=== PATIENT | male | born 1950 | race Caucasian/White ===

== ENCOUNTER 2016-06-30 10:26 | Emergency (ER) | payer OTHER ==
[2016-06-30 10:30] VITALS: BP 117/101; TEMP 98.2; BMI 32.5
[2016-06-30] MEDS ORDERED: TORADOL IVP STA (10:35)
[2016-06-30] MEDS ORDERED: TORADOL ONE (10:39)
[2016-06-30 11:02] LABS: BASOPHILS # (AUTO) 0.1 K/uL (0-0.2); BASOPHILS % (AUTO) 0.7 % (0.0-3.0); EOSINOPHILS # (AUTO) 0.1 K/ul (0.0-0.7); HEMATOCRIT 44.4 % (42.0-52.0); HEMOGLOBIN 15.2 g/dl (14.0-18.0); IMMATURE GRANULOCYTE % (AUTO) 0.8 % (0.0-5.0); LYMPHOCYTES # (AUTO) 1.9 K/uL (0.60-3.4); LYMPHOCYTES % (AUTO) 18.8 (10.0-50.0); MEAN CORPUSCULAR HEMOGLOBIN 31.7 pg (27.0-31.0); MEAN CORPUSCULAR HGB CONC 34.2 (31.8-35.4); MEAN CORPUSCULAR VOLUME 92.7 fl (80.0-94.0); MONOCYTES # (AUTO) 0.7 K/uL (0.4-2.0); NEUTROPHILS # (AUTO) 7.2 K/ul (2.0-6.9); NEUTROPHILS % (AUTO) 71.7; PLATELET COUNT 350 10^3/uL (140-440); RED BLOOD COUNT 4.79 10^6/ul (4.70-6.10); WHITE BLOOD COUNT 10.04 K/ul (4.2-10.2)
--- NOTE | 2016-06-30 11:09 | DI ---
EXAM: Two views of the chest. History: Shoulder pain. Comparison: Chest radiograph 04/28/2016 Findings: Upper limits of normal heart size. No focal consolidation. No appreciable pleural fluid and no pneumothorax. Atherosclerotic vascular calcifications. No acute osseous abnormalities. Impression: Upper limits of normal heart size with no acute infiltrates.
--- NOTE | 2016-06-30 11:21 | DI ---
EXAM: Three views of the left shoulder. History: Left shoulder pain. Findings: No acute fracture or dislocation. Mild to moderate narrowing of the left AC joint. Kyler ohumeral joint is intact. Impression: No acute osseous abnormality. 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
[2016-06-30 11:38] LABS: ALBUMIN 3.6 g/dL (3.4-5.0); ANION GAP 15.9; BILIRUBIN,TOTAL 0.92 mg/dL (0.00-1.20); BUN/CREATININE RATIO 16.8; CALCIUM 9.3 mg/dL (8.2-10.2); CREATININE 1.25 mg/dL (0.60-1.10); POTASSIUM 3.9 mmol/L (3.5-5.1); TOTAL PROTEIN 7.2 g/dL (5.8-8.1)
[2016-06-30 11:39] LABS: CREATINE KINASE MB 1.9 ng/ml (0.0-3.6)
--- NOTE | 2016-06-30 12:32 | ED.PDOC ---
General ED Provider: Dr. JOSE M MYLES Chief Complaint: Shoulder Pain/Injury Stated Complaint: patient is a 66 year old male who complains of left shoulder pain that started last night. He denies any injury or fall. Has not Taken anything for it. walked severeal blocks to get to the ER. Time Seen by Physician: 12:29 Mode of Arrival: Walk-In Information Source: Patient Exam Limitations: No limitations Primary [facility] and Triage Documentation Reviewed and Agree: Yes Musculoskeletal Complaint Exam - Shoulder Pain Complaint/Exam Mechanism of Injury: Reports: No known trauma Onset/Duration: 1 day Symptoms Are: Still present Timing: Constant Initial Severity: Moderate Current Severity: Severe Location: Reports: Discrete (Left shoulder and neck pain) Character: Reports: Aching, Throbbing Alleviating: Reports: None Aggravating: Reports: Movement, Lifting Associated Signs and Symptoms: Denies: Swelling, Redness, Bruising, Fever, Weakness, Numbness, Tingling Related History: Reports: Similar episode Non-Orthopedic Risk Factors: Reports: None DVT Risk Factors: Reports: None Septic Arthritis Risk Factors: Reports: None Related Surgical History: Reports: None Tenderness: Present: Clavicle Limited Range of Motion: Present: Abduction, Extension, Internal rotation, Rotator cuff muscles Shoulder Picture: 1 - tenderness and pain 2 - tenderness and pain Differential Diagnoses: Arthritis, Sprain, Strain, Tendonitis Quality Indicator For Non-Traumatic Chest Pain/Syncope: EKG Performed Review of Systems - Review Of Systems Constitutional: Reports: No symptoms Eyes: Reports: No symptoms Ears, Nose, Mouth, Throat: Reports: No symptoms Respiratory: Reports: No symptoms Cardiac: Reports: No symptoms GI: Reports: No symptoms : Reports: No symptoms Musculoskeletal: Reports: Joint pain, Joint swelling Skin: Reports: No symptoms Neurological: Reports: No symptoms, Anxiety Endocrine: Reports: No symptoms Hematologic/Lymphatic: Reports: No symptoms All Other Systems: Reviewed and Negative Past Medical History - Past Medical History Endocrine: Reports: None Cardiovascular: Reports: Hypertension Respiratory: Reports: None Hematological: Reports: None Gastrointestinal: Reports: None Genitourinary: Reports: None Neuro/Psych: Reports: None Musculoskeletal: Reports: None Cancer: Reports: None - Surgical History General Surgical History: Reports: None - Family History Family History: Reports: Hypertension - Social History Smoking Status: Former smoker Hx Substance Use: No Alcohol Screening: Occasionally Physical Exam - Physical Exam Appearance: Ill-appearing, Obese Pain Distress: Severe ENT: Ears normal Neck: Supple Respiratory: Airway patent, Breath sounds clear, Breath sounds equal, Respirations nonlabored Cardiovascular: RRR, Pulses normal, No rub, No murmur GI/: Soft, Nontender Musculoskeletal: Limited ROM (Left shouler ) Neurological: Alert Psychiatric: Anxious Interpretation - Radiology Interpretation Radiology Interpretation By: Radiologist Radiology Results: Negative Exam Interpreted: CXR Radiology Interpretation By: Radiologist Radiology Results: Negative (only arthritis.) Exam Interpreted: Other (shoulder x ray ) - EKG Interpretation Time of EKG #1: 11:50 Rate: Normal Rhythm: Sinus Ectopy: None [place]: Left ST Segment: Normal 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 Appearance: NAD Lungs: Clear Skin: Warm and Dry Neuro: Alert and Oriented X3 CV: RRR Critical Care Note - Critical Care Note Total Time (mins): 0 Course - Course Hematology/Chemistry: 06/30/16 10:55 06/30/16 10:55 Orders, Labs, Meds: Lab Review 06/30/16 10:55 WBC 10.04 RBC 4.79 Hgb 15.2 Hct 44.4 MCV 92.7 MCH 31.7 H MCHC 34.2 RDW Coeff of Joseph 12.4 Plt Count 350 Immature Gran % (Auto) 0.8 Neut % (Auto) 71.7 Lymph % (Auto) 18.8 [place] % (Auto) 7.0 Eos % (Auto) 1.0 Baso % (Auto) 0.7 Immature Gran # (Auto) 0.1 Neut # 7.2 H Lymph # 1.9 [place] # 0.7 Eos # 0.1 Baso # 0.1 Sodium 141 Potassium 3.9 Chloride 108 H Carbon Dioxide 21 L Anion Gap 15.9 BUN 21 H Creatinine 1.25 H Estimated GFR (MDRD) 57.00 BUN/Creatinine Ratio 16.80 Glucose 134 H Calcium 9.3 Total Bilirubin 0.92 AST 19 ALT 18 Alkaline Phosphatase 56 Total Creatine Kinase 193 CK-MB (CK-2) 1.9 CK-MB (CK-2) % 0.62198 Total Protein 7.2 Albumin 3.6 Globulin 3.6 Albumin/Globulin Ratio 1.00 Orders Category Date Time Status EKG-(ED ONLY) Stat CARDIO 06/30/16 10:37 Completed ED IV/MEDIPORT/POWERPORT .ONCE EMERGENCY 06/30/16 10:35 Active CBC W/ AUTO DIFF Stat LAB 06/30/16 10:55 Completed COMPREHENSIVE METABOLIC PANEL Stat LAB 06/30/16 10:55 Completed CREATINE KINASE Stat LAB 06/30/16 10:55 Completed 0.9 % Sodium Chloride [Saline Flush] MEDS 06/30/16 10:37 Discontinued 1 syr IVF PRN PRN Ketorolac Tromethamine [Toradol] MEDS 06/30/16 10:39 Discontinued 30 mg .ROUTE .STK-MED ONE Ketorolac Tromethamine [Toradol] MEDS 06/30/16 10:35 Discontinued 30 mg IVP ONCE STA CHEST, 2 VIEWS PA & LAT Stat RADS 06/30/16 10:37 Completed SHOULDER, LEFT MIN 2V Stat RADS 06/30/16 10:37 Completed Medications Discontinued Medications Generic Name Dose Route Start Last Admin Trade Name Freq PRN Reason Stop Dose Admin Ketorolac Tromethamine 30 mg 06/30/16 10:35 06/30/16 10:44 Toradol IVP 06/30/16 10:36 30 mg ONCE STA Administration Sodium Chloride 1 syr 06/30/16 10:37 06/30/16 10:44 Saline Flush IVF 1 syr PRN PRN Administration To flush IV Vital Signs: Temp Pulse Resp BP Pulse Ox 06/30/16 10:26 98.2 F 88 22 117/101 H 97 Departure - Departure Time of Disposition: 12:33 Disposition: HOME SELF-CARE Discharge Problem: Shoulder pain Instructions: Arthritis (ED) Condition: Good Pt referred to PMD for follow-up: Yes Additional Instructions: Push fluids Take pain medications as needed Rest Follow up with your PCP in 3 days Prescriptions: Acetaminophen with Codeine [Tylenol #3 Tab] 1 tab PO Q6H PRN #15 tablet PRN Reason: Severe Pain Allergies/Adverse Reactions: Allergies No Known Allergies Allergy (Verified 06/30/16 10:32) Home Medications: Ambulatory Orders Acetaminophen with Codeine [Tylenol #3 Tab] 1 tab PO Q6H PRN #15 tablet Disposition Discussed With: Patient
== END 2016-06-30 13:31 | disposition home or self-care (01) ==
LOC: ED 10:26
DX: M25.512 Pain in left shoulder (principal); M54.2 Cervicalgia; M19.012 Primary osteoarthritis, left shoulder; I10 Essential (primary) hypertension
CPT/HCPCS: 36415; 80053; 82550; 82553; 85025; 93005; 93010; 96374; 99283

== ENCOUNTER 2016-06-30 20:06 | Outpatient (CLI) | payer OTHER ==
[2016-06-30 10:30] VITALS: BMI 32.5
== END 2016-06-30 20:07 | disposition home or self-care (01) ==
LOC: AMBL 20:06
PROVIDERS: ATTEND Family Medicine
DX: R39.198 Other difficulties with micturition (principal); R10.31 Right lower quadrant pain; M54.9 Dorsalgia, unspecified

== ENCOUNTER 2016-07-13 10:50 | Outpatient (CLI) ==
[2016-07-13 15:15] LABS: CHOL/HDL RATIO 5.7 (4.5-6.4)
== END 2016-07-13 10:51 | disposition home or self-care (01) ==
LOC: LAB 10:50
PROVIDERS: ATTEND Nurse Practitioner Family
DX: E78.5 Hyperlipidemia, unspecified (principal); I10 Essential (primary) hypertension; Z12.5 Encounter for screening for malignant neoplasm of prostate
CPT/HCPCS: 36415; 80061; 84443

== ENCOUNTER 2016-07-19 16:43 | Outpatient (CLI) ==
[2016-07-19 17:12] LABS: FLU INTERNAL QC INTERNAL QC VALID; RAPID FLU A NEGATIVE (NEGATIVE); RAPID FLU B NEGATIVE (NEGATIVE)
== END 2016-07-19 16:44 | disposition home or self-care (01) ==
LOC: LAB 16:43
PROVIDERS: ATTEND Nurse Practitioner Family
DX: R05 Cough (principal); J02.9 Acute pharyngitis, unspecified; R50.9 Fever, unspecified
CPT/HCPCS: 87651; 87804; 87880

== ENCOUNTER 2017-10-02 13:09 | Emergency (ER) | payer OTHER ==
[2017-10-02 13:24] VITALS: BP 173/93; TEMP 98.5; BMI 37.5
[2017-10-02] MEDS ORDERED: NORCO 10-325 PO STA (13:42)
[2017-10-02] MEDS ORDERED: ZESTRIL PO STA (13:42)
--- NOTE | 2017-10-02 14:54 | DI ---
EXAM: Single view of the pelvis. History: Pelvic pain. Findings: No acute fracture or dislocation. Bilateral hip joint spaces are relatively preserved. D egenerative disc disease within the lower lumbar spine. Impression: No acute osseous abnormality.
--- NOTE | 2017-10-02 14:54 | DI ---
Exam: Right hip two-view. HISTORY: Pain. Findings: Two views of the right hip are submitted. These demonstrate no acute fracture or dislocat ion. There is no osseous erosion. There is no subchondral lucency or collapse. The right myron pelvi s appears intact. Surgical clips project over the right pelvis. No focal soft tissue swelling is se en. Impressions: Mild degenerative findings of the right hip with no acute fracture or dislocation.
--- NOTE | 2017-10-02 15:07 | CT ---
Exam: CT lumbar spine HISTORY: Pain. Low back pain going into the hips. Procedures: 3 mm contiguous axial images were obtained through the lumbar spine without the use of c ontrast. Sagittal and coronal reformatted images were also created and reviewed. Findings: There are five [id number], lumbarized vertebrae in approximate anatomic alignment. Th ere is multilevel mild degenerative disc and facet arthropathy with no acute fracture or listhesis. Mild degenerative findings are noted in the spine. Limited visualization of the adjacent soft tissue s demonstrates a 5 mm calcification in the right kidney, without hydronephrosis. At the upper pole o f the right kidney there is a fluid density probable cyst measuring at least 4 cm in diameter. This measured 3.2 cm in diameter on the 01/08/2013 CT of the abdomen. A 7 mm x 7 mm x 5 mm calcification i s noted in the distal ureter just proximal to the right ureterovesicular junction. Atherosclerotic ca lcifications are noted, without aortic aneurysm. There is no paraspinal fluid collection. Individua l disc levels are evaluated as follows At T12-L1 there is no significant disc bulge, central spinal canal or neural foraminal stenosis. At L1-2 there is a minimal sequential disc bulge without central canal stenosis. Mild neural foramin al stenosis is noted bilaterally. At L2-3 there is a mild sequential disc bulge without central spinal canal stenosis. Mild bilateral neural foraminal stenosis is noted. At L3-4 there is a mild circumferential disc bulge without midline central spinal canal stenosis. Mo derate neural foraminal stenosis is noted bilaterally. At L4-5 there is a mild circumferential disc bulge which combines with facet and ligamentous hypertro phy and reduces the AP diameter of the spinal canal to 8 mm. Moderate neural foraminal stenosis is n oted bilaterally. At L5-S1 there is a minimal disc bulge without central canal stenosis. Mild neural foraminal stenosi s is noted bilaterally. Impressions: No acute fracture or listhesis in the lumbar spine. Multilevel degenerative disease as described. Central spinal canal stenosis to 8 mm L4-5. Moderate neural foraminal stenosis bilaterally at L3-4 and L4-5. Mild neural foraminal stenosis at L 1-2, L2-3 and L5-S1. 7 mm x 7 mm x 5 mm calcification in the distal right ureter, just proximal to the ureterovesicular ju nction. No hydronephrosis or hydroureter. 5 mm nonobstructing calcification in the right kidney. Findings were faxed to the emergency department at 2:55 p.m.
[2017-10-02] MEDS ORDERED: MORPHINE 2 MG/ML SYRINGE IM STA (15:45)
[2017-10-02] MEDS ORDERED: ZOFRAN 4 MG/2 ML IM STA (15:45)
--- NOTE | 2017-10-02 15:47 | ED.PDOC ---
General ED Provider: Dr. DRU WILSON Chief Complaint: Hip Pain/Injury Stated Complaint: hip pain back pain Time Seen by Physician: 13:11 Mode of Arrival: Ambulance Information Source: Patient Exam Limitations: No limitations Primary Care Provider: LISSETT RAMIREZHillary Nursing and Triage Documentation Reviewed and Agree: Yes Reviewed sepsis parameters & appropriate labs ordered?: Yes System Inflammatory Response Syndrome: Not Applicable Sepsis Protocol: For patient's 13 years and over: Temp is 96.8 and below OR 101 and greater Pulse >90 BPM Resp >20/minute Acutely Altered Mental Status Are patient's symptoms suggestive of a new infection, such as: -Pneumonia -Skin, Soft Tissue -Endocarditis -UTI -Bone, Joint Infection -Implantable Device -Acute Abdominal Infection -Wound Infection -Meningitis -Blood Stream Catheter Infection -Unknown System Inflammatory Response Syndrome: Not Applicable Musculoskeletal Complaint Exam - Back Pain Complaint/Exam Mechanism of Injury: Reports: No known trauma Onset/Duration: 13:11 Symptoms Are: Still present Timing: Intermittent Initial Severity: Moderate Current Severity: Moderate Location: Reports: Discrete Character: Reports: Dull, Aching Alleviating: Reports: Rest Associated Signs and Symptoms: Denies: Swelling, Redness, Bruising, Fever, Weakness, Numbness, Tingling, Abdominal pain, Flank pain, Bladder incontinence, Bowel incontinence, Weight loss, Pain with weight bearing Related History: Reports: Similar episode TAD Risk Factors: Reports: None AAA Risk Factors: Reports: None Cauda Equina Risk Factors: Reports: None Epidural Abcess Risk Factors: Reports: None Focal Tenderness: No Paraspinal Muscle Tenderness: No Paraspinal Muscle Spasm: No Scoliosis: No Lordosis: No Kyphosis: No SLR Test: Right Negative, Left Negative Hip Motion Testing Pain: Right Negative, Left Negative Focal Weakness: Present: None Focal Sensory Loss: Present: None Gait: Present: Normal Differential Diagnoses: Strain, Sprain Review of Systems - Review Of Systems Constitutional: Reports: No symptoms Eyes: Reports: No symptoms Ears, Nose, Mouth, Throat: Reports: No symptoms Respiratory: Reports: No symptoms Cardiac: Reports: No symptoms GI: Reports: No symptoms : Reports: No symptoms Musculoskeletal: Reports: Back pain Skin: Reports: No symptoms Neurological: Reports: No symptoms Endocrine: Reports: No symptoms Hematologic/Lymphatic: Reports: No symptoms All Other Systems: Reviewed and Negative Past Medical History - Past Medical History Previously Healthy: Yes Endocrine: Reports: None Cardiovascular: Reports: Hypertension Respiratory: Reports: None Hematological: Reports: None Gastrointestinal: Reports: None Genitourinary: Reports: None Neuro/Psych: Reports: None Musculoskeletal: Reports: None Cancer: Reports: None - Surgical History General Surgical History: Reports: None - Family History Family History: Reports: Hypertension - Social History Smoking Status: Former smoker Hx Substance Use: No Alcohol Screening: Occasionally Physical Exam - Physical Exam Appearance: Well-appearing, No pain distress, Well-nourished Eyes: CAIO, EOMI, Conjunctiva clear ENT: Ears normal, Nose normal, Oropharynx normal Respiratory: Airway patent, Breath sounds clear, Breath sounds equal, Respirations nonlabored Cardiovascular: RRR, Pulses normal, No rub, No murmur GI/: Soft, Nontender, No masses, Bowel sounds normal, No Organomegaly Musculoskeletal: Normal strength, ROM intact, No edema, No calf tenderness Skin: Warm, Dry, Normal color Neurological: Sensation intact, Motor intact, Reflexes intact, Cranial nerves intact, Alert, Oriented Psychiatric: Affect appropriate, Mood appropriate Interpretation - Radiology Interpretation Radiology Interpretation By: Radiologist (spinal canal stenosis) Critical Care Note - Critical Care Note Total Time (mins): 0 Course - Course Orders, Labs, Meds: Orders Category Date Time Status Hydrocodone Bit/Acetaminophen [[place] 10-325] MEDS 10/02/17 13:42 Discontinued 1 tab PO ONCE STA Lisinopril [Zestril] MEDS 10/02/17 13:42 Discontinued 20 mg PO ONCE STA CT LUMBAR SPINE W/O CONTRAST Stat RADS 10/02/17 13:42 Completed HIP, RIGHT 2 VIEWS Stat RADS 10/02/17 13:41 Completed PELVIS 1 OR 2 VIEWS Stat RADS 10/02/17 13:41 Completed Medications Discontinued Medications Generic Name Dose Route Start Last Admin Trade Name Freq PRN Reason Stop Dose Admin Hydrocodone Bitart/Acetaminophen 1 tab 10/02/17 13:42 10/02/17 13:48 [place] 10-325 PO 10/02/17 13:43 1 tab ONCE STA Administration Lisinopril 20 mg 10/02/17 13:42 10/02/17 13:46 Zestril PO 10/02/17 13:43 20 mg ONCE STA Administration Vital Signs: Temp Pulse Resp BP Pulse Ox 10/02/17 13:11 98.5 F 83 20 173/93 H 98 Departure - Departure Time of Disposition: 15:49 Disposition: HOME SELF-CARE Discharge Problem: Hip pain Lumbar stenosis Qualifiers: Neurogenic claudication status: unspecified Qualified Code(s): M48.061 - Spinal stenosis, lumbar region without neurogenic claudication Instructions: Lumbar Spinal Stenosis (ED) Condition: Good Pt referred to PMD for follow-up: Yes IPMP verified?: No Additional Instructions: Please call your Family Physician as soon as possible to schedule a follow-up appointment. Allergies/Adverse Reactions: Allergies No Known Allergies Allergy (Verified 10/02/17 13:14) Home Medications: Ambulatory Orders 1 [No Reported Medications] 10/02/17 Disposition Discussed With: Patient
[2017-10-02] MEDS ORDERED: MORPHINE 4 MG/ML SYRINGE ONE (15:49)
== END 2017-10-02 16:17 | disposition home or self-care (01) ==
LOC: ED 13:09 → EDBD 13:09 → ED 16:17
DX: M48.061 Spinal stenosis, lumbar region without neurogenic claudication (principal); M25.551 Pain in right hip
CPT/HCPCS: 96372; 99283

== ENCOUNTER 2017-10-03 10:24 | Outpatient (CLI) | payer OTHER ==
[2017-10-02 13:24] VITALS: BMI 37.5
== END 2017-10-03 10:25 | disposition home or self-care (01) ==
LOC: RHC-LAB 10:24
PROVIDERS: ATTEND Emergency Medicine
DX: I10 Essential (primary) hypertension (principal); E66.9 Obesity, unspecified; R27.0 Ataxia, unspecified
CPT/HCPCS: 36415; 80053; 80061; 84443; 85025

== ENCOUNTER 2018-01-13 11:35 | Outpatient (CLI) | END 2018-01-13 11:36 | disposition home or self-care (01) | LOC: RHC-LAB 11:35 | PROVIDERS: ATTEND Emergency Medicine | DX: I10 Essential (primary) hypertension (principal); I25.10 Atherosclerotic heart disease of native coronary artery without angina pectoris; N18.3 Chronic kidney disease, stage 3 (moderate); Z91.14 Patient's other noncompliance with medication regimen | CPT/HCPCS: 36415; 80053; 80061; 84443; 85025 ==

== ENCOUNTER 2018-06-10 11:46 | Emergency (ER) ==
[2018-06-10 11:51] VITALS: BP 159/89; TEMP 98.2; BMI 37.3
--- NOTE | 2018-06-10 12:08 | ED.PDOC ---
General ED Provider: Dr. DRU WILSON Chief Complaint: Earache Stated Complaint: left ear pain Time Seen by Physician: 12:00 (seen with JAIR AT ALL TIMES NO NECK , NO THROAT PAIN ALSO NEGATIVE CHEST PAIN ON ARRIVAL) Mode of Arrival: Walk-In Information Source: Patient Exam Limitations: No limitations Primary Care Provider: MIKHAIL FALK Nursing and Triage Documentation Reviewed and Agree: Yes Does patient meet sepsis criteria?: No System Inflammatory Response Syndrome: Not Applicable Sepsis Protocol: For patient's 13 years and over: Temp is 96.8 and below OR 101 and greater Pulse >90 BPM Resp >20/minute Acutely Altered Mental Status Are patient's symptoms suggestive of a new infection, such as: -Pneumonia -Skin, Soft Tissue -Endocarditis -UTI -Bone, Joint Infection -Implantable Device -Acute Abdominal Infection -Wound Infection -Meningitis -Blood Stream Catheter Infection -Unknown EENT Complaint Exam - Ear Complaint/Exam Onset/Duration: TODAY Symptoms Are: Still present Timing: Constant Initial Severity: Moderate Current Severity: Moderate Character: Reports: Dull pain Aggravating: Reports: None Alleviating: Reports: None Associated Signs and Symptoms: Denies: Ear trauma, Ear swelling, Discharge, Fever, Hearing loss, Bleeding, Sore throat, Headache, URI symptoms, Foreign body sensation, Rash, Pain to external ear, Pain to external face Ear Surgical History: None Vesicles to External Pinna: No Vesicles to Tragus: No TMJ Tenderness: None Mastoid Tenderness: None Tragal Tenderness: None External Canal: Normal Material in Canal: Present: Cerumen Tympanic Membrane: Erythema Review of Systems - Review Of Systems Constitutional: Reports: No symptoms Eyes: Reports: No symptoms Ears, Nose, Mouth, Throat: Reports: Ear pain (LEFT). Denies: Ear discharge, Nose pain, Epistaxis, Mouth pain, Mouth swelling, Loose teeth, Throat pain, Throat swelling Respiratory: Denies: Cough, Orthopnea, Short of air, Stridor, Wheezing Cardiac: Denies: Chest pain, Edema, Irregular heart rate, Lightheadedness, Palpitations, Syncope GI: Reports: No symptoms : Reports: No symptoms Musculoskeletal: Reports: No symptoms Skin: Reports: No symptoms Neurological: Reports: No symptoms Endocrine: Reports: No symptoms Hematologic/Lymphatic: Reports: No symptoms All Other Systems: Reviewed and Negative Past Medical History - Past Medical History Previously Healthy: Yes Endocrine: Reports: None Cardiovascular: Reports: Hypertension Respiratory: Reports: None Hematological: Reports: None Gastrointestinal: Reports: None Genitourinary: Reports: None Neuro/Psych: Reports: None Musculoskeletal: Reports: None Cancer: Reports: None - Surgical History General Surgical History: Reports: None - Family History Family History: Reports: Hypertension - Social History Smoking Status: Former smoker Hx Substance Use: No Alcohol Screening: Occasionally Physical Exam - Physical Exam Appearance: Well-appearing, No pain distress, Well-nourished Eyes: CAIO, EOMI, Conjunctiva clear ENT: Erythema (LEFT TM) Respiratory: Airway patent, Breath sounds clear, Breath sounds equal, Respirations nonlabored Cardiovascular: RRR, Pulses normal, No rub, No murmur GI/: Soft, Nontender, No masses, Bowel sounds normal, No Organomegaly Musculoskeletal: Normal strength, ROM intact, No edema, No calf tenderness Skin: Warm, Dry, Normal color Neurological: Sensation intact, Motor intact, Reflexes intact, Cranial nerves intact, Alert, Oriented Psychiatric: Affect appropriate, Mood appropriate Critical Care Note - Critical Care Note Total Time (mins): 0 Course - Course Vital Signs: Temp Pulse Resp BP Pulse Ox 06/10/18 11:46 98.2 F 91 H 20 159/89 H 94 L Departure - Departure Time of Disposition: 12:09 (EXAMINED WITH JAIR AT ALL TIMES .PT REJECTED MOTOR SENSORY DEFICITS , NO CHEST PAIN) Disposition: HOME SELF-CARE Discharge Problem: Ear pain, left, Ear problem Instructions: Earache (ED) Condition: Good Pt referred to PMD for follow-up: Yes IPMP verified?: No Additional Instructions: Please call your Family Physician as soon as possible to schedule a follow-up appointment.IF YOUR DIZZY, IF YOU HAVE ANY PROBLEMS WITH USE OF ARMS AND HANDS LEG, CANT WALK RETURN TO EMERGENCY ROOM SOON YOU CAN Allergies/Adverse Reactions: Allergies No Known Allergies Allergy (Verified 06/10/18 11:52) Disposition Discussed With: Patient
== END 2018-06-10 12:19 | disposition home or self-care (01) ==
LOC: ED 11:46
DX: H92.02 Otalgia, left ear (principal); H61.22 Impacted cerumen, left ear
CPT/HCPCS: 99282